=== PATIENT | female | born 2000 | race Caucasian/White ===

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

== ENCOUNTER → 2021-06-06 21:02 | Observation (INO) ==
[2021-06-06 18:08] LABS: Basophils # 0.1 K/mcL (0.0-0.2); Basophils % 0.4 %; Eosinophils # 0.1 K/mcL (0.0-0.6); Eosinophils % 0.8 %; Hematocrit 36.6 % (35.3-44.9); Hemoglobin 11.7 g/dL (11.5-15.4); Immature Granulocytes % 0.7 % (0-4); Lymphocytes # 2.1 K/mcL (0.6-4.6); Lymphocytes % 17.3 %; Mean Corpuscular Hemoglobin 29.3 pg (28.0-33.3); Mean Corpuscular Volume 91.7 fL (83.0-100.0); Mean Platelet Volume 10.5 fL (9.4-12.4); Monocytes # 1.1 K/mcL (0.0-1.3); Monocytes % 9.2 %; Neutrophils # 8.6 K/mcL (1.6-8.9); Platelet Count 260 K/mcL (140-400); Red Blood Count 3.99 M/mcL (3.82-4.97); Red Cell Distribution Width 13.4 % (11.5-14.5); Segmented Neutrophils % 71.6 %
[2021-06-06 18:37] LABS: INR 0.9; Prothrombin Time 10.5 Seconds (9.4-12.1)
[2021-06-06 18:39] LABS: Activated Partial Thrombo Time 28.5 Seconds (26.0-36.0)
== END | disposition home or self-care (01) ==
LOC: 1NENULAB
PROVIDERS: ADMIT Advanced Practice Midwife; ATTEND Advanced Practice Midwife

== ENCOUNTER → 2021-08-09 11:00 | Observation (INO) ==
[2021-08-09 10:21] LABS: Bacteria,Urine Few per hpf (None-Few); Bilirubin,Urine Negative (Negative); Blood,Urine Negative (Negative); Clarity,Urine Turbid (Clear); Color,Urine Yellow (Yellow); Glucose,Urine (UA) Normal (Normal); Ketones,Urine Negative (Negative); Leukocyte Esterase,Urine Large (Negative); Mucus,Urine Few per lpf (None-Few); Nitrite,Urine Negative (Negative); PH,Urine 6.5 pH Units (5.0-8.0); Protein,Urine Trace mg/dL (Neg-Trace); Specific Gravity,Urine 1.022 (1.010-1.025); Squamous Epithelial Cell,Urine Many per hpf (None-Few); Urobilinogen,Urine Normal (Normal)
== END | disposition home or self-care (01) ==
LOC: 1NENULAB
PROVIDERS: ADMIT Obstetrics & Gynecology; ATTEND Obstetrics & Gynecology

== ENCOUNTER → 2021-08-24 00:45 | Observation (INO) ==
[2021-08-23 23:26] LABS: Bacteria,Urine Few per hpf (None-Few); Bilirubin,Urine Negative (Negative); Blood,Urine Negative (Negative); Clarity,Urine Turbid (Clear); Color,Urine Yellow (Yellow); Glucose,Urine (UA) Normal (Normal); Ketones,Urine Negative (Negative); Leukocyte Esterase,Urine Large (Negative); Mucus,Urine Few per lpf (None-Few); Nitrite,Urine Negative (Negative); Protein,Urine 30 mg/dL (Neg-Trace); Specific Gravity,Urine 1.023 (1.010-1.025); Squamous Epithelial Cell,Urine Many per hpf (None-Few); Urobilinogen,Urine Normal (Normal); WBC,Urine 15-30 per hpf (0-3)
== END | disposition home or self-care (01) ==
LOC: 1NENULAB
PROVIDERS: ADMIT Obstetrics & Gynecology; ATTEND Obstetrics & Gynecology

== ENCOUNTER 2021-09-03 09:34 | Inpatient (IN) ==
[2021-09-03] MEDS ORDERED: Ringers Solution, Lactated 1,000 ML ONE ×3 (09:51→12:30)
[2021-09-03] MEDS ORDERED: Lidocaine -MPF 2% 5 ML VIAL ONE (10:00)
[2021-09-03] MEDS ORDERED: Famotidine 20 MG/2 ML VIAL IVP ONE (11:06)
[2021-09-03] MEDS ORDERED: OXYTOCIN/RINGERS LACTATE 10 UNIT/166.6 ML BAG IVC ONE ×2 (11:06→17:15)
[2021-09-03] MEDS ORDERED: Metoclopramide 10 MG/2 ML VIAL IVP ONE (11:06)
[2021-09-03] MEDS ORDERED: Oxytocin 30 UNIT/503 ML BAG IVC SCH (11:15)
[2021-09-03 11:43] LABS: Basophils % 0.5 %; Eosinophils # 0.1 K/mcL (0.0-0.6); Eosinophils % 0.7 %; Hematocrit 38.3 % (35.3-44.9); Hemoglobin 11.7 g/dL (11.5-15.4); Immature Granulocytes % 0.7 % (0-4); Lymphocytes # 1.6 K/mcL (0.6-4.6); Lymphocytes % 18.3 %; Mean Corpuscular HGB Conc 30.5 g/dL (31.6-35.5); Mean Corpuscular Hemoglobin 26.2 pg (28.0-33.3); Mean Corpuscular Volume 85.7 fL (83.0-100.0); Mean Platelet Volume 10.9 fL (9.4-12.4); Monocytes # 0.7 K/mcL (0.0-1.3); Monocytes % 8.2 %; Neutrophils # 6.3 K/mcL (1.6-8.9); Platelet Count 253 K/mcL (140-400); Red Blood Count 4.47 M/mcL (3.82-4.97); Red Cell Distribution Width 14.9 % (11.5-14.5); Segmented Neutrophils % 71.6 %; White Blood Count 8.7 K/mcL (4.3-11.1)
[2021-09-03 11:52] LABS: Amphetamine Screen,Urine Negative ng/mL (Cutoff=1000); Barbiturate Screen,Urine Negative ng/mL (Cutoff=200); Benzodiazepines Screen,Urine Negative ng/mL (Cutoff=200); Cannabinoid Screen,Urine Negative ng/mL (Cutoff = 50); Cocaine Screen,Urine Negative ng/mL (Cutoff= 300); Opiate Screen,Urine Negative ng/mL (Cutoff=300); Phencyclidine Screen,Urine Negative ng/mL (Cutoff=25)
[2021-09-03] MEDS ORDERED: *HR* Meperidine 25 MG/ML SYRINGE IVP PRN (12:12)
[2021-09-03] MEDS ORDERED: *HR* HYDROmorphone (PF) 1 MG/ML SYRINGE IVP PRN (12:12)
[2021-09-03] MEDS ORDERED: Promethazine 6.25 MG in Water for inj. (sterile) 20 ML IVPB PRN (12:12)
[2021-09-03] MEDS ORDERED: Acetaminophen IV 1,000 MG/100 ML BAG IVPB PRN (12:12)
[2021-09-03] MEDS ORDERED: *HR* Labetalol 20 MG/4 ML SYRINGE IVP PRN (12:12)
[2021-09-03 12:23] LABS: Influenza A PCR Negative (Negative); Influenza B PCR Negative (Negative); Resp. Syncytial Virus PCR Negative (Negative)
[2021-09-03] MEDS ORDERED: *HR* Midazolam HCl 2 MG/2 ML VIAL ONE (12:23)
[2021-09-03] MEDS ORDERED: *HR* Morphine Sulfate/PF 10 MG/10 ML AMPUL ONE (12:23)
[2021-09-03] MEDS ORDERED: EPHEDrine 50 MG/ML VIAL ONE (12:24)
[2021-09-03] MEDS ORDERED: *HR* FentaNYL (PF) 100 MCG/2 ML VIAL ONE (12:24)
[2021-09-03] MEDS ORDERED: Azithromycin 250 MG TABLET PO ONE ×2 (12:26→17:15)
[2021-09-03] MEDS ORDERED: Acetaminophen IV 1,000 MG/100 ML BAG IVPB ONE (12:30)
[2021-09-03] MEDS ORDERED: Ketorolac 30 MG/ML VIAL ONE (12:31)
[2021-09-03] MEDS ORDERED: *HR* Oxytocin 10 UNIT/ML VIAL ONE (12:31)
[2021-09-03 12:50] LABS: SARS-CoV-2 by PCR (In House) Negative (Negative)
[2021-09-03] MEDS ORDERED: Metoclopramide 10 MG/2 ML VIAL IVP PRN (17:15)
[2021-09-03] MEDS ORDERED: Naloxone 0.4 MG/ML INJ IVP PRN (17:15)
[2021-09-03] MEDS ORDERED: *HR* OxyCODONE Immed Rel 5 MG TABLET PO PRN (17:15)
[2021-09-03] MEDS ORDERED: Ondansetron 4 MG/2 ML VIAL IVP PRN (17:15)
[2021-09-03] MEDS ORDERED: Rho Immune Globulin 1,500 UNIT SYRINGE IM ONE (17:15)
[2021-09-03] MEDS ORDERED: Simethicone 80 MG TAB.CHEW PO PRN (17:15)
[2021-09-03] MEDS: Acetaminophen 325 MG TABLET PO SCH (20:07)
[2021-09-03] MEDS: Ibuprofen 600 MG TABLET PO SCH (20:07)
[2021-09-04] MEDS: Acetaminophen 325 MG TABLET PO SCH ×5 (02:48→22:57)
[2021-09-04] MEDS: Ibuprofen 600 MG TABLET PO SCH ×5 (02:49→22:57)
[2021-09-04] MEDS: Azithromycin 250 MG TABLET PO SCH (08:41)
[2021-09-04] MEDS: Prenatal Vit/FA 1 EACH TABLET PO SCH (08:41)
[2021-09-04] MEDS ORDERED: Lanolin 7 G OINT...G. TP PRN (08:43)
[2021-09-04] MEDS ORDERED: Azithromycin 250 MG TABLET PO SCH (09:00)
[2021-09-05] MEDS: Acetaminophen 325 MG TABLET PO SCH (05:41)
[2021-09-05] MEDS: Ibuprofen 600 MG TABLET PO SCH (05:41)
[2021-09-05 06:43] VITALS: BP 116/69; PULSE 56; TEMP 97.8; O2SAT 98
[2021-09-05] MEDS: Azithromycin 250 MG TABLET PO SCH (08:31)
[2021-09-05] MEDS: Prenatal Vit/FA 1 EACH TABLET PO SCH (08:31)
== END 2021-09-05 10:41 | disposition home or self-care (01) | DRG 788 ==
LOC: 1NENULAB 09:34 → 1NENUOBS 16:54
PROVIDERS: ADMIT Obstetrics & Gynecology; ATTEND Obstetrics & Gynecology